=== PATIENT | female | born 1965 | race Caucasian/White ===

== ENCOUNTER 2018-07-18 12:59 | Day surgery (SDC) | payer OTHER ==
[~2018-07-18] VITALS: Ht 165.1 cm; Wt 86.0 kg
[~2018-07-18 12:59] MED LIST: BACI28.34 TOP; CLIN300C10 PO; HYDR-3498 PO; IBUP-1542 PO; NAPR-985 PO
[2018-07-18 14:29] VITALS: Ht 165.1 cm; Wt 86.0 kg
[2018-07-18] MEDS ORDERED: BP MED (14:39)
[2018-07-18] MEDS ORDERED: MTF1000T PO (14:39)
[2018-07-18 15:38] VITALS: BP 164/80; PULSE 86; RESP 18
--- NOTE | 2018-07-18 15:44 | PREAC ---
Date/Time of Note Date/Time of Note DATE: 07/18/18 TIME: 15:43 Anesthesia Eval and Record Evaluation Time Pre-Procedure Interview DATE: 07/18/18 TIME: 15:43 Age 53 Sex female NPO: 8 hrs Preoperative diagnosis SCREENING COLONOSCOPY Planned procedure COLONOSCOPY Past Medical History Past Medical History: Includes Cardio: HTN Endo: Diabetes Surgery & Anesthesia Issues No known issue Meds Anticoagulation: No Beta Albertina within 24 hr: No Reason Beta Albertina not given: Pt. not on B-Albertina Reported Medications [Bp Med] No Conflict Check 07/18/18 Metformin* (Glucophage*) 1,000 Mg Tablet, 1000 MG PO DAILY, #30 TAB 07/18/18 Discontinued Scripts Bacitracin* (Bacitracin Zinc Oint*) 28.35 Gm Oint, 1 APPLIC TOP BID, #1 TUB APPLI TO Prov:JANET OLIVER PA-C 09/08/15 Naproxen* (Naprosyn*) 500 Mg Tablet, 500 MG PO BID PRN for PAIN AND/OR INFLAMMATION, #30 TAB Prov:JANET OLIVER PA-C 09/06/15 Hydrocodone Bit-Acetaminophen* (Jasper*) 5-325 Mg Tab, 1 TAB PO Q6 PRN for PAIN, #7 TAB Prov:JANET OLIVER PA-C 09/06/15 Clindamycin Hcl* (Clindamycin Hcl*) 300 Mg Capsule, 600 MG PO TID for 14 Days, CAP Prov:JANET OLIVER PA-C 09/06/15 Hydrocodone Bit-Acetaminophen* (Jasper*) 5-325 Mg Tab, 1 TAB PO Q6 PRN for PAIN, #10 TAB Prov:TICO MARTINEZ 08/26/15 Ibuprofen* (Motrin*) 600 Mg Tab, 600 MG PO Q6, #30 TAB Prov:JUAN,TICO C 08/26/15 Meds reviewed: Yes Allergies Coded Allergies: No Known Allergy (Unverified , 09/08/15) Allergies Reviewed: Yes Labs/Studies Labs Reviewed: Reviewed by anesthesiologist test: N/A Pre-procedure Exam Last vitals Vital Signs Date Temp Pulse Resp B/P (MAP) Pulse Ox O2 O2 Flow FiO2 Time Delivery Rate 07/18/18 98.0 86 18 164/80 98 Room Air 15:38 (108) Airway: Adequate mouth opening, Adequate thyromental dist Mallampati: Mallampati II Teeth: Normal Lung: Normal Heart: Normal ASA Physical Status ASA physical status: 2 Emergency: None Planned Anesthetic General/MAC: MAC Planned Pain Management Parenteral pain med Pre-operative Attestations Prior to commencing anesthesia and surgery, the patient was re-evaluated, there was verification of: *The patient's identity *The results of appropriate recent lab work and preoperative vital signs *The above evaluation not changing prior to induction *Anesthetic plan, risk benefits, alternative and complications discussed with pa tient/family; questions answered; patient/family understands, accepts and wishes to proceed. Pavel Maldonado M.D. Jul 18, 2018 15:44
[2018-07-18] MEDS ORDERED: LIDOCAINE 100 MG SYRINGE ONE (15:47)
[2018-07-18] MEDS ORDERED: PROPOFOL 40 ML ONE (15:47)
--- NOTE | 2018-07-18 16:03 | PAC ---
Date/Time of Note Date/Time of Note DATE: 07/18/18 TIME: 16:03 Post-Anesthesia Notes Post-Anesthesia Note Last documented vital signs Vital Signs Date Temp Pulse Resp B/P (MAP) Pulse Ox O2 O2 Flow FiO2 Time Delivery Rate 07/18/18 98.0 86 18 164/80 98 Room Air 15:38 (108) Activity: WNL Respiratory function: WNL Cardiovascular function: WNL Mental status: Baseline Pain reasonably controlled: Yes Hydration appropriate: Yes Nausea/Vomiting absent: Yes Pavel Maldonado M.D. Jul 18, 2018 16:03
== END 2018-07-18 17:51 | disposition home or self-care (01) ==
LOC: GIL 12:59 → REC 13:01 → GIL 17:51
PROVIDERS: ATTEND Internal Medicine Gastroenterology
DX: Z12.11 Encounter for screening for malignant neoplasm of colon (principal); K64.8 Other hemorrhoids; I10 Essential (primary) hypertension; E11.9 Type 2 diabetes mellitus without complications; Z79.84 Long term (current) use of oral hypoglycemic drugs
CPT/HCPCS: 45378; 82962; J2001; Z7610